=== PATIENT | male | born 1955 | race Caucasian/White ===

== ENCOUNTER 2018-01-11 14:02 | Emergency (ER) | payer OTHER ==
[~2018-01-11] VITALS: Ht 190.5 cm; Wt 138.3 kg
--- NOTE | ~2018-01-11 | EKG ---
[place] [address] [employer] [facility] [place] [address] ELECTROCARDIOGRAM REPORT Name: SUDHA CUENCA [facility]: [facility] [id number] Admission: 01/11/18 Attend Phys: Discharge: 01/11/18 Date of : 59 Report #: [id number] THIS REPORT FOR: //name// [facility] ED Test Date: 2018-01-11 Test Time: 15:09:57 Pat Name: SUDHA CUENCA Department: Room: Gender: M Mail Carrier And Clerk: Camila JOEL RN : 1955 Requested By: Nicho Lowery Order Number: [id number] MD: Chintan Blackmon Measurements Intervals [place] Rate: 98 P: 62 DE: 182 QRS: -11 QRSD: 109 T: 57 QT: 390 QTc: 499 Interpretive Statements Atrial flutter with variable block Nonspecific T-wave abnormalities Compared to ECG 10/29/2012 10:28:57 Atrial flutter has replaced sinus rhythm Electronically Signed On 01-12-2018 11:04:27 CDT by Chintan Blackmon [email or web address] <ELECTRONICALLY SIGNED> By: Chintan Blackmon MD 01/12/18 1104 1509 1509 MD JACQUELINE Gee
[~2018-01-11 14:02] MED LIST: ASPIRIN325 PO; BLOOD PRESSURE; FLAGYL500 MG PO; GLUCOPHAGE1000 MG PO; GLUCOPHAGE500 MG PO; LEVAQUIN 500 M500 M1 PO; LOSARTAN-HCTZ1 EAC1 PO; TOPROL XL25 MG PO
[2018-01-11] MEDS ORDERED: LIPITOR 20 MG T20 M1 PO (15:28)
[2018-01-11 15:29] LABS: ABSOLUTE NEUTROPHILS 3.5 thou/uL (1.4-8.2); BASOPHILS 1.1 % (0.0-2.0); EOSINOPHILS 1.7 % (0.0-3.0); HEMATOCRIT 44.7 % (42.0-52.0); HEMOGLOBIN 15.3 gm/dL (14.0-18.0); LYMPHOCYTES 35.2 % (24.0-44.0); MCH 30.1 pg (26.0-34.0); MCHC 34.2 g/dL (28.0-37.0); MONOCYTES 9.7 % (1.0-8.0); PLATELET COUNT 145 thou/uL (150-400); POLYS 52.3 % (36.0-66.0); RBC 5.08 mil/uL (4.50-6.00); RDW 13.9 % (10.5-14.5); WBC 6.7 thou/uL (4.0-11.0)
[2018-01-11 15:36] LABS: ANION GAP 7 mmol/L (7-16); BUN 21 mg/dL (7-18); CALCIUM 9.3 mg/dL (8.5-10.1); CHLORIDE 103 mmol/L (98-107); CO2 27 mmol/L (21-32); CREATININE 1.3 mg/dL (0.7-1.3); GLUCOSE 111 mg/dL (74-106); POTASSIUM 4.5 mmol/L (3.5-5.1); SODIUM 137 mmol/L (136-145)
[2018-01-11 15:44] LABS: TROPONIN-I <0.06 ng/mL (<0.06)
[2018-01-11] MEDS ORDERED: CARDIZEM CD240 MG PO (17:37)
[2018-01-11] MEDS ORDERED: ELIQUIS5 MG PO (17:37)
== END 2018-01-11 18:14 | disposition home or self-care (01) ==
LOC: ER 14:02
PROVIDERS: Emergency Medicine
DX: I48.92 Unspecified atrial flutter (principal); F17.210 Nicotine dependence, cigarettes, uncomplicated; I10 Essential (primary) hypertension; E11.9 Type 2 diabetes mellitus without complications; E78.00 Pure hypercholesterolemia, unspecified

== ENCOUNTER → 2018-03-24 | Outpatient (CLI) | payer OTHER ==
[~2018-03-24] VITALS: Ht 180.3 cm; Wt 136.1 kg
[~2018-03-24] MED LIST changes: +ASPIR 8181 MG PO; +CARDIZEM CD240 MG PO; +COZAAR 50 MG TA50 M1 PO; +ELIQUIS5 MG PO; +LIPITOR 20 MG T20 M1 PO; +METFORMIN HCL500 MG PO; +TOPROL XL100 MG PO
--- NOTE | ~2018-03-24 | TEE ---
[facility] [place] [address] TRANSESOPHAGEAL ECHOCARDIOGRAM Name: SUDHA CUENCA Room #: REG CL [facility]#: [id number] Admission: 03/24/18 Attend Phys: Paolo Ernst, Discharge: Date of : 59 Date of Service: 03/24/18 0939 Report #: [id number] THIS REPORT FOR: //name// APPROVED REPORT Study performed: 03/24/2018 09:01:58 EXAM: Transesophageal Echocardiogram Patient Location: Out-Patient Status: routine BSA: 2.50 HR: 71 bpm Rhythm: Atrial Fibrillation Other Information Study Quality: Good Indications Atrial Fibrillation Procedure After obtaining informed consent, patient underwent transesophageal echo in the [employer]. Type of Sedation : Conscious Sedation Sedation was administered by Ethel Bauer RN. Sedation was achieved intravenously with: Versed (4) Fentanyl (50) Transesophageal probe was inserted and advanced into esophagus without difficulty by Paolo Ernst MD. Echo enhancement indication: R/O Septal defect. Echo enhancement agent administered: Agitated Saline The DAVID was performed without complications. Throughout the procedure, the blood pressure, pulse oximetry, cardiac rhythm, and rate were monitored. The patient tolerated the procedure without adverse effects. Recovery from conscious sedation was uneventful and vital signs were stable. Left Ventricle Left ventricle is dilated. There is global hypokinesis of the left ventricle. Mild concentric left ventricular hypertrophy. Left ventricular systolic function is moderately decreased. LVEF is 35-40%. [facility] [address] [place] [address] TRANSESOPHAGEAL ECHOCARDIOGRAM Name: SUDHA CUENCA Room #: REG CL [facility].#: [id number] Admission: 03/24/18 Attend Phys: Paolo Ernst, Discharge: Date of : 59 Date of Service: 03/24/18 0939 Report #: [id number] Right Ventricle Right ventricle is dilated. Right ventricle is hypokinetic. Atria Left atrium is dilated. No thrombus is visualized in the left atrium or appendage. No shunting noted by contrast bubble injection. Right atrium is dilated. Aortic Valve The aortic valve is normal in structure. No aortic regurgitation is present. There is no aortic valvular stenosis. Mitral Valve The mitral valve is normal in structure. Mild mitral regurgitation. No evidence of mitral valve stenosis. Tricuspid Valve The tricuspid valve is normal in structure. Trace tricuspid regurgitation. Pulmonic Valve The pulmonary valve is normal in structure. There is no pulmonic valvular regurgitation. Great Vessels The aortic root is normal in size. The ascending aorta is normal in size. IVC is normal in size and collapses >50% with inspiration. Pericardium There is no pericardial effusion. <Conclusion> Left ventricular systolic function is moderately decreased. LVEF is 35-40%. Left atrium is dilated. No thrombus is visualized in the left atrium or appendage. No shunting noted by contrast bubble injection. The aortic valve is normal in structure. No aortic regurgitation or stenosis The mitral valve is normal in structure. Mild mitral regurgitation. [facility] [address] [address] TRANSESOPHAGEAL ECHOCARDIOGRAM Name: SUDHA CUENCA GRAMBLING Room #: REG CL [facility].#: [id number] Admission: 03/24/18 Attend Phys: Paolo Ernst, Discharge: Date of : 59 Date of Service: 03/24/18938 Report #: [id number] The ascending aorta is normal in size. There is no pericardial effusion. <ELECTRONICALLY SIGNED> By: Paolo Ernst MD, [facility] 03/24/18938 8 8 Paolo Ernst MD, FACC /INF
[2018-03-24 08:58] VITALS: BP 155/80
[2018-03-24 09:56] LABS: CALCIUM 8.4 mg/dL (8.5-10.1); CREATININE 1.6 mg/dL (0.7-1.3); POTASSIUM 4.5 mmol/L (3.5-5.1)
== END | disposition home or self-care (01) ==
LOC: CATH 08:19
PROVIDERS: Internal Medicine
DX: I48.91 Unspecified atrial fibrillation (principal); I34.0 Nonrheumatic mitral (valve) insufficiency; I07.1 Rheumatic tricuspid insufficiency; I48.92 Unspecified atrial flutter; I10 Essential (primary) hypertension; E78.5 Hyperlipidemia, unspecified; E11.9 Type 2 diabetes mellitus without complications; K57.92 Diverticulitis of intestine, part unspecified, without perforation or abscess without bleeding; K21.9 Gastro-esophageal reflux disease without esophagitis; E66.9 Obesity, unspecified; Z79.899 Other long term (current) drug therapy; Z79.82 Long term (current) use of aspirin; Z79.84 Long term (current) use of oral hypoglycemic drugs; Z82.49 Family history of ischemic heart disease and other diseases of the circulatory system

== ENCOUNTER 2018-03-31 06:32 | Observation (INO) | payer OTHER ==
[~2018-03-31] VITALS: Ht 180.3 cm; Wt 136.1 kg
--- NOTE | ~2018-03-31 | D ---
[facility] [address] [place] [address] DISCHARGE SUMMARY Name: SUDHA CUENCA Room #: 205-P [facility] M.R.#: [id number] Admission: 03/31/18 Attend Phys: Navi Campa MD Discharge: Date of : 59 Report #: [id number] THIS REPORT FOR: //name// CC: Chintan Mcintyre Whitwell DISCHARGE DIAGNOSES: 1. Atrial fibrillation. 2. Atrial flutter. 3. Coronary artery disease. 4. Diabetes. 5. Obesity. HISTORY OF PRESENT ILLNESS: The patient is a 63-year-old male with AFib and atrial flutter here for ablation. He underwent successful ablation with isolation of the pulmonary veins and cavotricuspid isthmus dependent flutter ablation with evidence of bidirectional block post-ablation. He had no procedural complications. HOSPITAL COURSE: He was monitored overnight and did well. He was resumed on his blood thinners. He had no chest pain, shortness of breath post-ablation. On exam, heart was regular rate and rhythm. Lungs were clear to auscultation bilaterally. His bilateral groins showed no hematoma or bruising. On telemetry, he remained in sinus rhythm. As such, he was deemed stable for discharge home. He will continue with anticoagulation. We will start on amiodarone 200 mg a day and I will see him back in 2-4 weeks in clinic. By: 0848 09 MD juan Carpio
--- NOTE | ~2018-03-31 | P ---
[facility] [address] [place] [address] PROCEDURE REPORT Name: SUDHA CUENCA Room #: 205-P [facility] M.R.#: [id number] Admission: 03/31/18 Attend Phys: Navi Campa MD Discharge: Date of : 59 Report #: [id number] THIS REPORT FOR: //name// CC: Chintan Klein PREOPERATIVE DIAGNOSES: 1. Atrial fibrillation. 2. Typical atrial flutter. POSTOPEATIVE DIAGNOSES: 1. Atrial fibrillation. 2. Typical atrial flutter. PROCEDURES PERFORMED: 1. AFib ablation, CPT code 94579. 2. 3D mapping, CPT code 39837. 3. Intracardiac echo, CPT code 84501. 4. Focal ablation, CPT code 60717. HISTORY: The patient is a 63-year-old with history of typical atrial flutter and atrial fibrillation, here for an ablation. ANESTHESIA: The patient underwent general anesthesia with no anesthesia-related complications. DESCRIPTION OF PROCEDURE: The patient underwent informed consent. We discussed the details of the procedure including the risks, which include but not limited to bleeding, infection, vascular damage, cardiac perforation as well as stroke or ID. He understood these risks and is willing to proceed. The patient was brought to the EP laboratory in a fasting and sedated state and prepped and draped in a sterile fashion. I obtained access to the bilateral femoral veins placing two 8-Fijian short sheaths in the right femoral vein and 9 and 7-Fijian short sheath in the left femoral vein using the modified Seldinger technique. Next, under fluoroscopy, I placed a decapolar catheter into the coronary sinus and an ICE catheter into the right atrium. Of note, the CS catheter would often times fall out of the CS, but eventually would stay in place. Next, using a CartoSound, I created a 3D geometry of the left atrium with specific emphasis of the two left and right pulmonary veins and the left atrial appendage. The right superior pulmonary vein had two branches and in order to isolate this vein, I had to place my Achieve catheter into each of these vessels in order to achieve isolation. The patient was systemically heparinized and a transseptal was performed with an SL1 sheath and a [place] needle. The transseptal was straightforward. I then [address] [address] PROCEDURE REPORT Name: SUDHA CUENCA BABATUNDE Room #: 205-P [facility] Yonny Hernandez#: [id number] Admission: 03/31/18 Attend Phys: Navi Campa MD Discharge: Date of : 59 Report #: [id number] used a [employer] [place] catheter to obtain baseline measurements of the 4 pulmonary veins and then exchanged the SL1 sheath for the cryo sheath. The cryoablation catheter was placed in the left atrium. At baseline, the patient was in AFib with a ventricular cycle length of 1410 milliseconds, QRS duration 90 milliseconds, QT interval 480 milliseconds. Next, I started by isolating the left superior pulmonary vein. This vein isolated within 35 seconds of the first freeze. The first freeze was of 4 minutes' duration and then a second freeze of 3 minutes duration was also performed. I then isolated the left inferior pulmonary vein. I performed a 4-minute freeze and a 3-minute freeze. The vein isolated within 60 seconds of the first freeze. I then turned my attention to the right superior pulmonary vein. This vessel was somewhat more challenging due to its superior and inferior branching. I performed two 3-minute freezes and then a 2-minute freeze, but the vein remained connected. I then was able to place my Achieve catheter into the inferior branch and I performed a 4-minute freeze and a 2-minute freeze. After this, the vein was isolated. I then turned my attention to the right inferior pulmonary vein. This vein also had a difficult anatomy. I performed two 4-minute freezes with the vein in a very inferior location on the vessel. I then performed 2 freezes that allowed for leakage at the inferior aspect of the vein, but took care of the superior pole of this vein. After these 4 freezes, the vein was isolated. The patient then was cardioverted with 200 joules and went into atrial flutter with an atrial cycle length that was 300 milliseconds in a proximal to distal activation along the CS. I paced him out of this and then we checked all the veins. The left superior pulmonary vein was reconnected and I performed a 4-minute freeze and this vein was then isolated with evidence of entrance and exit block. All the veins were re-interrogated and found to be isolated. As such, the cryo sheath and balloon were pulled to the right atrium. Ablation of atrial flutter: Next, using an 8 mm ablation catheter and SR0 sheath. a detailed 3D geometry of the right atrium was created. Pre-ablation, the transisthmus conduction time was 90 milliseconds. Ablation was performed at 70 virk and 60 degrees with a continuous drag lesion. After finishing this ablation line, there was evidence of bidirectional block with transisthmus conduction time, now 160 milliseconds with activation sequence consistent with bidirectional block. As such, the procedure was concluded. Post-ablation, the patient was in sinus rhythm with a sinus cycle length of 1190 milliseconds, WA interval 245 milliseconds, QRS duration 90 milliseconds, QT interval 505 milliseconds, AH interval 135 milliseconds, and HV interval of 49 milliseconds. As such, all catheters and sheaths were pulled. Hemostasis was obtained after the patient received systemic protamine and intracardiac ultrasound verified that there was no evidence of a pericardial effusion. CONCLUSIONS: 1. Successful atrial fibrillation ablation with isolation of the 4 pulmonary veins with evidence of entrance and exit block. 2. Successful atrial flutter ablation with evidence of bidirectional block. [facility] [address] [place] [address] PROCEDURE REPORT Name: SUDHA CUENCA BABATUNDE Room #: 205-P [facility] Yonny Hernandez#: [id number] Admission: 03/31/18 Attend Phys: Navi Campa MD Discharge: Date of : 59 Report #: [id number] 3. Mild sick sinus syndrome with a junctional rhythm post-cardioversion, but eventually the patient was in sinus rhythm. 4. Normal arteriovenous sylwia function. 5. Normal His-Purkinje function. By: 1202 10 Navi Campa MD /nt
[2018-03-31 06:59] VITALS: BP 149/90
[2018-03-31 07:31] LABS: ABSOLUTE NEUTROPHILS 3.1 thou/uL (1.4-8.2); BASOPHILS 1.1 % (0.0-2.0); EOSINOPHILS 2.2 % (0.0-3.0); HEMATOCRIT 44.8 % (42.0-52.0); HEMOGLOBIN 15.4 gm/dL (14.0-18.0); LYMPHOCYTES 39.3 % (24.0-44.0); MCH 30.3 pg (26.0-34.0); MCHC 34.3 g/dL (28.0-37.0); MCV 88.3 fL (80.0-100.0); PLATELET COUNT 147 thou/uL (150-400); POLYS 50.4 % (36.0-66.0); RBC 5.08 mil/uL (4.50-6.00); RDW 14.7 % (10.5-14.5); WBC 6.3 thou/uL (4.0-11.0)
[2018-03-31 07:45] LABS: APTT 29.8 Seconds (24.5-32.8); INR 1.1; PROTIME 10.8 Seconds (9.3-11.4)
[2018-03-31 07:48] LABS: CREATININE 1.4 mg/dL (0.7-1.3); POTASSIUM 4.3 mmol/L (3.5-5.1)
[2018-03-31 07:52] LABS: ALBUMIN 3.4 g/dL (3.4-5.0); TOTAL BILIRUBIN 0.5 mg/dL (<0.1-1.0); TOTAL PROTEIN 6.9 g/dL (6.4-8.2)
[2018-03-31 13:57] VITALS: BP 144/88
[2018-03-31 17:17] VITALS: BP 138/68
[2018-03-31 19:36] VITALS: BP 124/74
[2018-04-01 00:19] VITALS: BP 133/70
[2018-04-01 04:32] VITALS: BP 133/70
[2018-04-01 07:49] VITALS: BP 128/78
[2018-04-01] MEDS ORDERED: PACERONE 200 M200 M1 PO (08:18)
[2018-04-01 09:00] VITALS: BP 128/78
[2018-04-01 11:29] VITALS: BP 133/75
== END 2018-04-01 13:17 | disposition home or self-care (01) ==
LOC: CATH 06:32 → 2N 07:06 → CATH 14:39 → ENTRNSPT 04-01 13:04 → EDTRNSPTSTS 04-01 13:07 → 2N 04-01 13:17
PROVIDERS: Internal Medicine Cardiovascular Disease
DX: I48.91 Unspecified atrial fibrillation (principal); I48.3 Typical atrial flutter; I49.5 Sick sinus syndrome; I25.10 Atherosclerotic heart disease of native coronary artery without angina pectoris; E11.9 Type 2 diabetes mellitus without complications; E66.9 Obesity, unspecified; Z23 Encounter for immunization
CPT/HCPCS: 62110; 62900; 65020; 65040; 65043; 65131; 70005

== ENCOUNTER → 2018-04-29 | Outpatient (CLI) | payer OTHER ==
[~2018-04-29] MED LIST changes: +PACERONE 200 M200 M1 PO
--- NOTE | ~2018-04-29 | EKG ---
[address] [employer] [place] [address] ELECTROCARDIOGRAM REPORT Name: SUDHA CUENCA [id number] Admission: 04/29/18 Attend Phys: Navi Campa MD Discharge: Date of : 59 Report #: [id number] THIS REPORT FOR: //name// [facility] Test Date: 2018-04-29 Test Time: 07:15:38 Pat Name: SUDHA CUENCA Department: Room: Gender: M Marketing Support Manager: : 1955 Requested By: Navi Campa Order Number: [id number] MD: Paolo Ernst Measurements Intervals [place] Rate: 41 P: 13 WI: 255 QRS: -18 QRSD: 113 T: 23 QT: 530 QTc: 438 Interpretive Statements Sinus bradycardia Prolonged WI interval Right ventricular conduction delay Compared to ECG 02/19/2018 08:45:07 Sinus rhythm has replaced atrial flutter Electronically Signed On 04-29-2018 9:23:20 HEALTH INFORMATION MANAGEMENT DIRECTOR by Paolo Ernst [email or web address] <ELECTRONICALLY SIGNED> By: Paolo Ernst MD, [facility] 04/29/1823 4 4 Paolo Ernst MD, [facility] /EPI
== END | disposition home or self-care (01) ==
LOC: CATH 06:41
DX: I48.91 Unspecified atrial fibrillation (principal); Z53.8 Procedure and treatment not carried out for other reasons

== ENCOUNTER → 2018-07-31 | Outpatient (CLI) | payer OTHER ==
--- NOTE | 2018-08-03 21:19 | SLE ---
[facility] [address] [place] [address] POLYSOMNOGRAPHY STUDY Name: SUDHA CUENCA Room #: REG [facility].#: [id number] Admission: 07/31/18 ������������������ Attend Phys: Yovani Oropeza MD Discharge: ������������������ Date of : 59 Report #: [id number] THIS REPORT FOR: //name// CC: Yovani Klein DATE OF SERVICE: 07/31/2018 ATTENDING PHYSICIAN: Dr. Yobani Fairbanks. The patient is a 63-year-old who weighs 315 pounds with a BMI of 43.9. The patient's [place] score was 9. The patient underwent a split night study performed at [facility]. During the night study, the patient spent 367 minutes in bed and slept for 285 minutes with a sleep efficiency of 77%. Sleep latency was 8.3 minutes with a REM latency of 167.8 minutes. Overall sleep architecture showed increased stage 1 and stage 2 sleep, absent slow wave and reduced REM sleep, which is 12% of the total sleep time. During the diagnostic portion of the study, the patient slept for 130 minutes. During that time, the patient had 120 obstructive apneas, 20 mixed apneas and 1 central apnea and 84 hypopneas. The patient's apnea hypopnea index was 103 per hour with a REM index of 66 per hour and a supine index of 105 per hour. EKG monitoring revealed an average heart rate of 52 beats per minute. No sustained arrhythmias observed. PLMS were seen at index of 11.5 per hour and only 0.5 per hour caused EEG arousals. Nocturnal oximetry study during the diagnostic portion of the study revealed an average oxygen saturation of 92% with lowest of 63%. 32 minutes were spent at an oxygen saturation less than 89%. The patient met the criteria for CPAP initiation. It was started at 7 cm water and titrated up to 17 cm water. At the final pressure, the patient slept for 30.8 minutes. The patient had lateral sleep. No supine or REM sleep observed. The patient's AHI was 1.9 per hour. Oxygen saturation remained above 92%. IMPRESSION: 1. Severe sleep apnea hypopnea syndrome at an AHI of 103 per hour. 2. Nocturnal hypoxia secondary to obstructive sleep apnea, but resolved with CPAP. 3. No clinically significant periodic limb movements. [facility] [address] [place] [address] POLYSOMNOGRAPHY STUDY Name: SUDHA CUENCA BABATUNDE [facility] [id number] Admission: 07/31/18 ������������������ Attend Phys: Yovani Oropeza MD Discharge: ������������������ Date of : 59 Report #: [id number] RECOMMENDATIONS: 1. CPAP at 17 cm water completely eliminated the patient's sleep apnea and should be used on a nightly basis. It should be noted that supine or REM sleep was not observed at this pressure and I would recommend to have a download in 30-60 days to make sure AHI is less than 5 per hour. 2. Follow up in 30-60 days to assess compliance and to document clinical improvement. 3. Weight loss is strongly advised. 4. Avoid [employer] depressants. 5. Cautioned regarding driving until symptoms of sleep apnea resolve with the use of CPAP. ��������������������������������������������� <ELECTRONICALLY SIGNED> ���������������������������������������� By: Yovani Oropeza MD ��������������������������������������������� 08/03/18 2119 1747 1813 Yovani Oropeza MD /nt
== END ==
LOC: SLEEPLAB 16:12
DX: G47.39 Other sleep apnea (principal); I48.92 Unspecified atrial flutter

== ENCOUNTER → 2018-10-22 | Outpatient (CLI) | payer OTHER ==
[~2018-10-22] VITALS: Ht 180.3 cm; Wt 142.9 kg
[~2018-10-22] MED LIST changes: +K-DUR 20 MEQ T20 MEQ PO; +LASIX 40 MG TAB40 M2 PO; +LYSINE500 MG PO
--- NOTE | ~2018-10-22 | P ---
[facility] [address] [place] [address] PROCEDURE REPORT Name: SUDHA CUENCA [id number] Admission: 10/22/18 ������������������ Attend Phys: Jair Becker Discharge: ������������������ Date of : 59 Report #: [id number] THIS REPORT FOR: //name// CC: Jose Lauren DATE OF SERVICE: 10/22/2018 PROCEDURE PERFORMED: Colonoscopy. HISTORY OF PRESENT ILLNESS: The patient is a 63-year-old male here for routine followup colonoscopy with a history of polyps, family history of colon cancer in his father, one episode of diverticulitis in the past. He denies any symptoms at this time. DESCRIPTION OF PROCEDURE: The risks and benefits of the procedure were explained to the patient, those risks including but not limited to bleeding, perforation and the risk of sedation. He understood these risks and gave informed consent. Sedation was given using propofol per Anesthesia. Next, a digital rectal exam was initially performed, which was normal. Next, using a standard Olympus colonoscope, scope was placed in the patient's anus and advanced under direct vision to the cecum. The overall prep was good. The cecum and ileocecal valve were normal in appearance. A few scattered diverticula were noted in the ascending colon, otherwise normal. The transverse colon was normal. Multiple diverticula were noted in the descending and sigmoid colon, no evidence of inflammation, otherwise normal. The rectal mucosa was normal. On retroflexion, small nonbleeding internal hemorrhoids were noted. The scope was then withdrawn and the procedure terminated. The patient tolerated the procedure well. IMPRESSION: 1. Diverticulosis. 2. Internal hemorrhoids. 3. Otherwise, normal colonoscopy. RECOMMENDATIONS: Repeat colonoscopy in 5 years due to family history. Thank you for allowing me to participate in the care of this patient. ��������������������������������������������� ���������������������������������������� By: ��������������������������������������������� 0853 2252 /nt
== END | disposition home or self-care (01) ==
LOC: GI 06:59
DX: Z12.11 Encounter for screening for malignant neoplasm of colon (principal); Z86.010 Personal history of colon polyps; Z80.0 Family history of malignant neoplasm of digestive organs; K57.30 Diverticulosis of large intestine without perforation or abscess without bleeding; K64.8 Other hemorrhoids; I10 Essential (primary) hypertension; E11.9 Type 2 diabetes mellitus without complications; E78.5 Hyperlipidemia, unspecified; G47.33 Obstructive sleep apnea (adult) (pediatric); I48.91 Unspecified atrial fibrillation; I48.92 Unspecified atrial flutter; Z98.890 Other specified postprocedural states; Z87.891 Personal history of nicotine dependence; Z79.899 Other long term (current) drug therapy; Z87.19 Personal history of other diseases of the digestive system; Z79.01 Long term (current) use of anticoagulants; Z79.82 Long term (current) use of aspirin
CPT/HCPCS: 62110; 62900

== ENCOUNTER → 2021-06-21 | Outpatient (CLI) | payer OTHER | LOC: SJCVCIMAG 14:01 | PROVIDERS: ATTEND Internal Medicine Cardiovascular Disease | DX: I48.91 Unspecified atrial fibrillation (principal); I42.9 Cardiomyopathy, unspecified; G47.33 Obstructive sleep apnea (adult) (pediatric); E66.9 Obesity, unspecified; E11.9 Type 2 diabetes mellitus without complications; E78.5 Hyperlipidemia, unspecified; I10 Essential (primary) hypertension; Z95.818 Presence of other cardiac implants and grafts; Z82.49 Family history of ischemic heart disease and other diseases of the circulatory system; Z72.89 Other problems related to lifestyle; Z87.891 Personal history of nicotine dependence; Z79.82 Long term (current) use of aspirin; Z79.84 Long term (current) use of oral hypoglycemic drugs; Z79.899 Other long term (current) drug therapy ==